=== PATIENT | male | born 1980 | race Two or more races ===

== ENCOUNTER 2024-12-17 08:20 | Day surgery (SDC) | payer OTHER, SELFPAY ==
[2024-12-17] VITALS (10 sets, daily range): BP systolic 128–202; BP diastolic 87–133; PULSE 85–98; RESP 16–20; TEMP 36.7–36.8; O2SAT 97–100; BMI 27.3
[2024-12-17] MEDS: SODIUM CHLORIDE 0.9% 500 ML 500 ML 20 ML IV (10:35)
[2024-12-17] MEDS: BENZOCAINE 20% (Hurricaine) SPRAY 1 DOSE TOP (10:35)
[2024-12-17] MEDS: DiphenhydrAMINE INJ 50 MG/ML VIAL 25 MG IVP (10:36)
[2024-12-17] MEDS: fentaNYL CIT INJ 50 mCg/ML AMP 2ML (ASD USE ONLY) IVP (10:38)
[2024-12-17] MEDS: MIDAZOLAM INJ 1 MG/ML VIAL 2 ML (ASD USE ONLY) 2 MG IVP (10:40)
[2024-12-17] MEDS: hydrALAZINE INJ 20 MG/ML VIAL 10 MG IV (10:46)
== END 2024-12-17 11:35 | disposition home or self-care (01) ==
PROVIDERS: PCP Nurse Practitioner Family; Referring Provider Specialist; Visit Provider Specialist
PROC: (CPT 43239; principal; 2024-12-17 09:30)
DX: K29.50 Unspecified chronic gastritis without bleeding (principal); K20.90 Esophagitis, unspecified without bleeding
CPT/HCPCS: 43239; J0360; J1200; J2250; J3010; J7999; A9270

== ENCOUNTER 2025-02-25 10:45 | Day surgery (SDC) | payer OTHER, SELFPAY ==
[2025-02-25] VITALS (9 sets, daily range): BP systolic 114–187; BP diastolic 77–109; PULSE 81–120; RESP 11–25; TEMP 36.5–36.9; O2SAT 96–100; BMI 28.7
[2025-02-25] MEDS: SODIUM CHLORIDE 0.9% 500 ML 500 ML 20 ML IV (12:18)
[2025-02-25] MEDS: MIDAZOLAM INJ 1 MG/ML VIAL 2 ML (ASD USE ONLY) 2 MG IVP (12:23)
[2025-02-25] MEDS: fentaNYL CIT INJ 50 mCg/ML AMP 2ML (ASD USE ONLY) IVP (12:26)
== END 2025-02-25 13:14 | disposition home or self-care (01) ==
PROVIDERS: PCP Nurse Practitioner Family; Referring Provider Specialist; Visit Provider Specialist
PROC: 0DBE8ZX Excision of Large Intestine, Via Natural or Artificial Opening Endoscopic, Diagnostic (ICD-10-PCS; CPT 45380; principal; 2025-02-25 10:00)
DX: Z12.11 Encounter for screening for malignant neoplasm of colon (principal); K64.9 Unspecified hemorrhoids; K29.70 Gastritis, unspecified, without bleeding; K20.90 Esophagitis, unspecified without bleeding
CPT/HCPCS: 45378; A4649; J1200; J2250; J3010; J7999